=== PATIENT | female | born 1960 | race Caucasian/White ===

== ENCOUNTER 2018-10-31 11:09 | Inpatient (IN) | payer MEDICARE, OTHER, SELFPAY ==
[~2018-10-31] VITALS: Ht 157.5 cm; Wt 96.6 kg
[~2018-10-31 11:09] MED LIST: LEVO75 PO; LISI-662 PO; VENL-67 PO
[2018-10-31] MEDS ORDERED: HYDR50CA10 PO (11:35)
[2018-10-31] MEDS ORDERED: QUET200T PO (11:35)
[2018-10-31] MEDS ORDERED: LOVA20 PO (11:35)
[2018-10-31] MEDS ORDERED: SERT100T12 PO (11:35)
[2018-10-31] MEDS ORDERED: BUSP5TAB20 PO (11:35)
[2018-10-31] MEDS ORDERED: CLON2 PO (11:35)
[2018-10-31 12:21] LABS: BASOPHILS % (AUTO) 0.7 % (0.0-2.0); EOSINOPHILS % (AUTO) 0.6 % (1.0-6.0); HEMOGLOBIN 14.1 g/dL (12.0-16.0); LYMPHOCYTES # (AUTO) 1.7 K/uL (1.0-4.8); LYMPHOCYTES % (AUTO) 24.1 % (22.0-44.0); MEAN CORPUSCULAR HEMOGLOBIN 30.9 pg (26.0-34.0); MEAN CORPUSCULAR HGB CONC 34.5 G/dL (31.0-37.0); MEAN CORPUSCULAR VOLUME 90 fL (80-100); MONOCYTES # (AUTO) 0.5 K/uL (0.1-1.0); MONOCYTES % (AUTO) 7.3 % (2.0-9.0); NEUTROPHILS # (AUTO) 4.8 K/uL (1.8-7.7); NEUTROPHILS % (AUTO) 67.3 % (40.0-70.0); PLATELET COUNT (AUTO) 227 K/uL (150-450); RED BLOOD CELL COUNT(AUTO) 4.58 MIL/uL (4.00-5.20); RED CELL DISTRIBUTION WIDTH 13.1 % (11.5-14.5)
[2018-10-31 12:46] LABS: ANION GAP 11 mmol/L (8-16); CALCIUM, TOTAL 9.3 mg/dL (8.8-10.5); CARBON DIOXIDE 26 mmol/L (22-29); CHLORIDE 104 mmol/L (98-107); CREATININE 0.85 mg/dL (0.60-1.30); GLOMERULAR FILTR. RATE CALC > 60 mL/min (>60); GLUCOSE,RANDOM 98 mg/dL (70-110); POTASSIUM 3.6 mmol/L (3.5-5.1); SODIUM SERUM 141 mmol/L (136-145); UREA NITROGEN, BLOOD 7 mg/dL (7-18)
[2018-10-31 12:50] LABS: ALANINE AMINOTRANSFERASE 22 U/L (12-78); ALBUMIN 3.5 g/dL (3.4-5.0); ALKALINE PHOSPHATASE 78 U/L (46-116); ASPARTATE AMINOTRANSFERASE 13 U/L (15-37); BILIRUBIN,TOTAL 0.3 mg/dL (0.1-1.0); TOTAL PROTEIN, SERUM 7.6 g/dL (6.4-8.2)
[2018-10-31] MEDS ORDERED: HALOPERIDOL 5 MG TABLET PO PRN (13:00)
[2018-10-31] MEDS ORDERED: ZOLPIDEM TARTRATE 10 MG TABLET PO PRN (13:00)
[2018-10-31 14:01] LABS: AMPHET/METH SCREEN,URINE NEGATIVE (NEGATIVE); BARBITURATE SCREEN, URINE NEGATIVE (NEGATIVE); BENZODIAZEPINES SCREEN,URINE NEGATIVE (NEGATIVE); CANNABINOID SCREEN,URINE NEGATIVE (NEGATIVE); COCAINE SCREEN,URINE NEGATIVE (NEGATIVE); METHADONE SCREEN, URINE NEGATIVE (NEGATIVE); OPIATE SCREEN,URINE NEGATIVE (NEGATIVE); PHENCYCLIDINE SCREEN,URINE NEGATIVE (NEGATIVE)
[2018-10-31 14:07] LABS: APPEARANCE,URINE CLEAR (CLEAR); BILIRUBIN,URINE NEGATIVE (NEGATIVE); GLUCOSE, URINE (UA) NEGATIVE (NEGATIVE); KETONES,URINE NEGATIVE (NEGATIVE); LEUKOCYTE ESTERASE ,URINE NEGATIVE (NEGATIVE); NITRATE,URINE NEGATIVE (NEGATIVE); OCCULT BLOOD,URINE NEGATIVE (NEGATIVE); PROTEIN,URINE NEGATIVE (NEGATIVE); UROBILINOGEN,URINE 0.2 mg/dL (<=1.0)
[2018-10-31] MEDS ORDERED: PNEUMOCOCCAL VACCINE POLYVALENT 0.5 ML VIAL [PPSV23] IM ONE (17:00)
[2018-10-31 17:13] VITALS: BP 107/69
[2018-10-31] MEDS ORDERED: MAGNESIUM HYDROXIDE SUSPENSION 30 ML UDCUP PO PRN (20:15)
[2018-10-31] MEDS ORDERED: ONDANSETRON HCL 4 MG TABLET PO PRN (20:15)
[2018-10-31] MEDS ORDERED: IBUPROFEN 400 MG TABLET PO PRN (20:15)
[2018-10-31] MEDS ORDERED: MAG HYDROX/AL HYDROX/SIMETH ES 30 ML SUSPENSION UDCUP PO PRN (20:15)
[2018-10-31] MEDS ORDERED: ACETAMINOPHEN 325 MG TABLET PO PRN (20:15)
[2018-10-31] MEDS ORDERED: LOPERAMIDE HCL 2 MG CAPSULE PO PRN (20:15)
[2018-10-31] MEDS ORDERED: GuaiFENesin/D-METHORPHAN [SUGAR-FREE] 200-20MG/10 ML SYRUP UDCUP PO PRN (20:15)
[2018-10-31] MEDS ORDERED: DOCUSATE SODIUM 100 MG CAPSULE PO PRN (20:15)
[2018-10-31] MEDS ORDERED: NICOTINE 14 MG/24 HOUR PATCH TD PRN (20:15)
[2018-10-31] MEDS ORDERED: CloNIDine HCL 0.1 MG TABLET PO PRN (20:15)
[2018-10-31] MEDS ORDERED: PETROLATUM,WHITE 71 GM JELLY TP PRN (20:15)
[2018-10-31] MEDS ORDERED: ALBUTEROL SULFATE HFA 90 MCG/PUFF 8 GM INHALER IH PRN (20:15)
[2018-10-31] MEDS: LOVASTATIN 20 MG TABLET PO SCH (21:27)
[2018-11-01 04:30] VITALS: BP 117/58
[2018-11-01] MEDS: LORazepam 2 MG TABLET PO PRN (04:50)
[2018-11-01] MEDS: LEVOTHYROXINE SODIUM 75 MCG TABLET PO SCH (06:10)
[2018-11-01] MEDS ORDERED: LEVOTHYROXINE SODIUM 25 MCG TABLET PO SCH (06:30)
[2018-11-01 08:00] VITALS: BP 113/71
[2018-11-01 08:11] LABS: BASOPHILS % (AUTO) 0.5 % (0.0-2.0); EOSINOPHILS % (AUTO) 1.7 % (1.0-6.0); HEMATOCRIT 40.6 % (36-46); LYMPHOCYTES # (AUTO) 1.8 K/uL (1.0-4.8); LYMPHOCYTES % (AUTO) 25.2 % (22.0-44.0); MEAN CORPUSCULAR HEMOGLOBIN 30.7 pg (26.0-34.0); MEAN CORPUSCULAR HGB CONC 34.5 G/dL (31.0-37.0); MEAN CORPUSCULAR VOLUME 89 fL (80-100); MONOCYTES # (AUTO) 0.5 K/uL (0.1-1.0); MONOCYTES % (AUTO) 6.9 % (2.0-9.0); NEUTROPHILS # (AUTO) 4.6 K/uL (1.8-7.7); NEUTROPHILS % (AUTO) 65.7 % (40.0-70.0); PLATELET COUNT (AUTO) 217 K/uL (150-450); RED BLOOD CELL COUNT(AUTO) 4.56 MIL/uL (4.00-5.20)
[2018-11-01 08:27] LABS: HEMOGLOBIN A1C 5.7 % (4.5-6.2)
[2018-11-01] MEDS: LISINOPRIL 20 MG TABLET PO SCH (08:34)
[2018-11-01 09:23] LABS: ALBUMIN 3.5 g/dL (3.4-5.0); BILIRUBIN,TOTAL 0.3 mg/dL (0.1-1.0); CALCIUM, TOTAL 8.4 mg/dL (8.8-10.5); CHOL/HDL RATIO 2.5 (3.9-5.7); CREATININE 0.99 mg/dL (0.60-1.30); FREE T4 (FREE THYROXINE) 0.98 ng/dL (0.76-1.46); THYROID STIMULATING HORMONE 2.03 uIU/mL (0.36-3.74); TOTAL PROTEIN, SERUM 7.2 g/dL (6.4-8.2)
[2018-11-01] MEDS: SERTRALINE HCL 100 MG TABLET PO SCH (10:16)
[2018-11-01] MEDS: BusPIRone HCL 5 MG TABLET PO SCH ×2 (12:41→16:34)
[2018-11-01 16:06] VITALS: BP 112/70
[2018-11-01] MEDS: LOVASTATIN 20 MG TABLET PO SCH (20:40)
[2018-11-01] MEDS: QUEtiapine FUMARATE 200 MG TABLET PO SCH (20:40)
[2018-11-02 05:56] VITALS: BP 110/70
[2018-11-02] MEDS: LEVOTHYROXINE SODIUM 75 MCG TABLET PO SCH (06:23)
[2018-11-02] MEDS: LORazepam 2 MG TABLET PO PRN (06:23)
[2018-11-02 08:10] LABS: AMPHET/METH SCREEN,URINE NEGATIVE (NEGATIVE); BARBITURATE SCREEN, URINE NEGATIVE (NEGATIVE); BENZODIAZEPINES SCREEN,URINE NEGATIVE (NEGATIVE); CANNABINOID SCREEN,URINE NEGATIVE (NEGATIVE); COCAINE SCREEN,URINE NEGATIVE (NEGATIVE); METHADONE SCREEN, URINE NEGATIVE (NEGATIVE); OPIATE SCREEN,URINE NEGATIVE (NEGATIVE)
[2018-11-02 08:14] LABS: PHENCYCLIDINE SCREEN,URINE NEGATIVE (NEGATIVE)
[2018-11-02] MEDS: BusPIRone HCL 5 MG TABLET PO SCH ×3 (08:24→16:30)
[2018-11-02] MEDS: SERTRALINE HCL 100 MG TABLET PO SCH (08:29)
[2018-11-02] MEDS: LISINOPRIL 20 MG TABLET PO SCH (08:29)
[2018-11-02 08:40] LABS: APPEARANCE,URINE CLEAR (CLEAR); BILIRUBIN,URINE NEGATIVE (NEGATIVE); GLUCOSE, URINE (UA) NEGATIVE (NEGATIVE); KETONES,URINE NEGATIVE (NEGATIVE); LEUKOCYTE ESTERASE ,URINE NEGATIVE (NEGATIVE); NITRATE,URINE NEGATIVE (NEGATIVE); OCCULT BLOOD,URINE NEGATIVE (NEGATIVE); PH,URINE 7.5 (5.0-8.0); PROTEIN,URINE NEGATIVE (NEGATIVE); UROBILINOGEN,URINE 0.2 mg/dL (<=1.0)
[2018-11-02 08:53] VITALS: BP 120/74
[2018-11-02 16:12] VITALS: BP 99/71
[2018-11-02 20:35] VITALS: BP 104/69
[2018-11-02] MEDS: LOVASTATIN 20 MG TABLET PO SCH (20:36)
[2018-11-02] MEDS: QUEtiapine FUMARATE 200 MG TABLET PO SCH (20:36)
[2018-11-03] MEDS: LEVOTHYROXINE SODIUM 75 MCG TABLET PO SCH (06:41)
[2018-11-03 06:45] VITALS: BP 108/72
[2018-11-03] MEDS: BusPIRone HCL 5 MG TABLET PO SCH ×3 (08:01→16:45)
[2018-11-03] MEDS: SERTRALINE HCL 100 MG TABLET PO SCH (08:01)
[2018-11-03] MEDS: LISINOPRIL 20 MG TABLET PO SCH (08:01)
[2018-11-03 08:22] VITALS: BP 110/66
[2018-11-03] MEDS: LORazepam 2 MG TABLET PO PRN (13:18)
[2018-11-03 16:09] VITALS: BP 105/76
[2018-11-03] MEDS: LOVASTATIN 20 MG TABLET PO SCH (20:37)
[2018-11-03] MEDS: QUEtiapine FUMARATE 200 MG TABLET PO SCH (20:38)
[2018-11-04 06:34] VITALS: BP 110/62
[2018-11-04] MEDS: LEVOTHYROXINE SODIUM 75 MCG TABLET PO SCH (06:42)
[2018-11-04] MEDS: LORazepam 2 MG TABLET PO PRN (07:19)
[2018-11-04 08:15] VITALS: BP 108/60
[2018-11-04] MEDS: SERTRALINE HCL 100 MG TABLET PO SCH (08:43)
[2018-11-04] MEDS: BusPIRone HCL 5 MG TABLET PO SCH ×3 (08:43→17:21)
[2018-11-04] MEDS: LISINOPRIL 20 MG TABLET PO SCH (08:43)
[2018-11-04 16:32] VITALS: BP_SYST 123; BP_SYST 89; BP_DIAS 53; BP_DIAS 98
[2018-11-04] MEDS: QUEtiapine FUMARATE 200 MG TABLET PO SCH (20:28)
[2018-11-04] MEDS: LOVASTATIN 20 MG TABLET PO SCH (20:29)
[2018-11-05 06:17] VITALS: BP 120/82
[2018-11-05] MEDS: LEVOTHYROXINE SODIUM 75 MCG TABLET PO SCH (06:31)
[2018-11-05 08:07] VITALS: BP 102/71
[2018-11-05] MEDS: LISINOPRIL 20 MG TABLET PO SCH (09:00)
[2018-11-05] MEDS: BusPIRone HCL 5 MG TABLET PO SCH ×3 (09:00→16:09)
[2018-11-05] MEDS: SERTRALINE HCL 100 MG TABLET PO SCH (09:00)
[2018-11-05] MEDS ORDERED: LORazepam 1 MG TABLET PO ONE (09:45)
[2018-11-05] MEDS ORDERED: QUEtiapine FUMARATE 25 MG TABLET PO ONE (09:45)
[2018-11-05 16:24] VITALS: BP 118/99
[2018-11-05] MEDS: LOVASTATIN 20 MG TABLET PO SCH (20:27)
[2018-11-05] MEDS: QUEtiapine FUMARATE 200 MG TABLET PO SCH (20:27)
[2018-11-06 04:58] VITALS: BP 104/63
[2018-11-06] MEDS: LEVOTHYROXINE SODIUM 75 MCG TABLET PO SCH (06:31)
[2018-11-06 08:21] VITALS: BP 119/64
[2018-11-06] MEDS: BusPIRone HCL 5 MG TABLET PO SCH (08:41)
[2018-11-06] MEDS: SERTRALINE HCL 100 MG TABLET PO SCH (08:41)
[2018-11-06] MEDS: LISINOPRIL 20 MG TABLET PO SCH (08:41)
[2018-11-06] MEDS: BuPROPion HCL XL 150 MG ER TABLET PO SCH (10:36)
[2018-11-06] MEDS: BusPIRone HCL 15 MG TABLET PO SCH ×2 (12:22→16:20)
[2018-11-06 16:09] VITALS: BP 108/64
[2018-11-06] MEDS: LOVASTATIN 20 MG TABLET PO SCH (19:46)
[2018-11-06] MEDS: QUEtiapine FUMARATE 200 MG TABLET PO SCH (19:46)
[2018-11-07] MEDS: LEVOTHYROXINE SODIUM 75 MCG TABLET PO SCH (06:32)
[2018-11-07 06:36] VITALS: BP 106/62
[2018-11-07] MEDS: BuPROPion HCL XL 150 MG ER TABLET PO SCH (08:17)
[2018-11-07] MEDS: BusPIRone HCL 15 MG TABLET PO SCH ×3 (08:17→16:41)
[2018-11-07] MEDS: LISINOPRIL 20 MG TABLET PO SCH (08:17)
[2018-11-07] MEDS: SERTRALINE HCL 100 MG TABLET PO SCH (08:17)
[2018-11-07] MEDS: LORazepam 2 MG TABLET PO PRN (08:56)
[2018-11-07 09:03] VITALS: BP 120/90
[2018-11-07] MEDS: QUEtiapine FUMARATE 25 MG TABLET PO SCH ×2 (09:40→16:41)
[2018-11-07 16:41] VITALS: BP 100/62
[2018-11-07] MEDS: LOVASTATIN 20 MG TABLET PO SCH (20:37)
[2018-11-07] MEDS: QUEtiapine FUMARATE 200 MG TABLET PO SCH (20:37)
[2018-11-08 05:43] VITALS: BP 110/70
[2018-11-08] MEDS: LEVOTHYROXINE SODIUM 75 MCG TABLET PO SCH (07:00)
[2018-11-08] MEDS: LORazepam 2 MG TABLET PO PRN (07:00)
[2018-11-08 08:17] VITALS: BP 112/70
[2018-11-08] MEDS: BusPIRone HCL 15 MG TABLET PO SCH ×3 (08:58→16:24)
[2018-11-08] MEDS: SERTRALINE HCL 100 MG TABLET PO SCH (08:58)
[2018-11-08] MEDS: LISINOPRIL 20 MG TABLET PO SCH (09:00)
[2018-11-08] MEDS: QUEtiapine FUMARATE 25 MG TABLET PO SCH ×2 (09:00→16:24)
[2018-11-08] MEDS: BuPROPion HCL XL 150 MG ER TABLET PO SCH (09:00)
[2018-11-08 16:00] VITALS: BP 104/68
[2018-11-08] MEDS: LOVASTATIN 20 MG TABLET PO SCH (21:17)
[2018-11-08] MEDS: QUEtiapine FUMARATE 200 MG TABLET PO SCH (21:17)
[2018-11-09] VITALS: BP 97/63
[2018-11-09] MEDS: LEVOTHYROXINE SODIUM 75 MCG TABLET PO SCH (06:40)
[2018-11-09 08:07] VITALS: BP 111/61
[2018-11-09] MEDS: QUEtiapine FUMARATE 25 MG TABLET PO SCH ×2 (08:25→16:55)
[2018-11-09] MEDS: SERTRALINE HCL 100 MG TABLET PO SCH (08:25)
[2018-11-09] MEDS: BusPIRone HCL 15 MG TABLET PO SCH ×3 (08:25→16:55)
[2018-11-09] MEDS: LISINOPRIL 20 MG TABLET PO SCH (08:25)
[2018-11-09] MEDS: BuPROPion HCL XL 150 MG ER TABLET PO SCH (08:26)
[2018-11-09] MEDS: LORazepam 2 MG TABLET PO PRN (14:28)
[2018-11-09 16:21] VITALS: BP 109/60
[2018-11-09] MEDS: LOVASTATIN 20 MG TABLET PO SCH (20:13)
[2018-11-09] MEDS: QUEtiapine FUMARATE 200 MG TABLET PO SCH (20:13)
[2018-11-10 04:37] VITALS: BP 110/70
[2018-11-10] MEDS: LEVOTHYROXINE SODIUM 75 MCG TABLET PO SCH (06:30)
[2018-11-10] MEDS: LORazepam 2 MG TABLET PO PRN (06:30)
[2018-11-10 08:15] VITALS: BP 105/66
[2018-11-10 08:25] VITALS: BP 110/79
[2018-11-10] MEDS: BusPIRone HCL 15 MG TABLET PO SCH ×3 (08:25→16:16)
[2018-11-10] MEDS: BuPROPion HCL XL 150 MG ER TABLET PO SCH (08:25)
[2018-11-10] MEDS: SERTRALINE HCL 100 MG TABLET PO SCH (08:25)
[2018-11-10] MEDS: QUEtiapine FUMARATE 25 MG TABLET PO SCH ×2 (08:25→16:16)
[2018-11-10] MEDS: LISINOPRIL 20 MG TABLET PO SCH (08:25)
[2018-11-10 17:35] VITALS: BP 114/62
[2018-11-10] MEDS: QUEtiapine FUMARATE 200 MG TABLET PO SCH (20:23)
[2018-11-10] MEDS: LOVASTATIN 20 MG TABLET PO SCH (20:23)
[2018-11-11 05:59] VITALS: BP 114/71
[2018-11-11] MEDS: LEVOTHYROXINE SODIUM 75 MCG TABLET PO SCH (06:31)
[2018-11-11 08:23] VITALS: BP 112/87
[2018-11-11] MEDS: SERTRALINE HCL 100 MG TABLET PO SCH (08:26)
[2018-11-11] MEDS: LISINOPRIL 20 MG TABLET PO SCH (08:26)
[2018-11-11] MEDS: BusPIRone HCL 15 MG TABLET PO SCH ×3 (08:26→16:35)
[2018-11-11] MEDS: QUEtiapine FUMARATE 25 MG TABLET PO SCH ×2 (08:26→16:35)
[2018-11-11] MEDS: BuPROPion HCL XL 150 MG ER TABLET PO SCH (08:27)
[2018-11-11] MEDS ORDERED: LORazepam 1 MG TABLET PO ONE (13:00)
[2018-11-11] MEDS ORDERED: ChlorproMAZINE HCL 25 MG TABLET PO ONE (13:00)
[2018-11-11] MEDS ORDERED: ChlorproMAZINE HCL 50 MG TABLET PO ONE (13:00)
[2018-11-11 16:22] VITALS: BP 106/71
[2018-11-11] MEDS: QUEtiapine FUMARATE 200 MG TABLET PO SCH (20:18)
[2018-11-11] MEDS: LOVASTATIN 20 MG TABLET PO SCH (20:18)
[2018-11-12 05:46] VITALS: BP 103/60
[2018-11-12] MEDS: LEVOTHYROXINE SODIUM 75 MCG TABLET PO SCH (06:52)
[2018-11-12 08:00] VITALS: BP 116/69
[2018-11-12] MEDS: QUEtiapine FUMARATE 25 MG TABLET PO SCH ×2 (08:39→16:43)
[2018-11-12] MEDS: SERTRALINE HCL 100 MG TABLET PO SCH (08:39)
[2018-11-12] MEDS: BuPROPion HCL XL 150 MG ER TABLET PO SCH (08:39)
[2018-11-12] MEDS: BusPIRone HCL 15 MG TABLET PO SCH ×3 (08:39→16:43)
[2018-11-12] MEDS: LISINOPRIL 20 MG TABLET PO SCH (08:39)
[2018-11-12] MEDS ORDERED: BUPR-93 PO (10:46)
[2018-11-12] MEDS ORDERED: SERT100T12 PO (10:46)
[2018-11-12] MEDS ORDERED: BUSP15 PO (10:46)
[2018-11-12 16:26] VITALS: BP 110/60
[2018-11-12] MEDS: LOVASTATIN 20 MG TABLET PO SCH (20:25)
[2018-11-12] MEDS: QUEtiapine FUMARATE 200 MG TABLET PO SCH (20:26)
[2018-11-13 05:35] VITALS: BP 120/67
[2018-11-13] MEDS: LEVOTHYROXINE SODIUM 75 MCG TABLET PO SCH (06:32)
[2018-11-13 08:12] VITALS: BP 111/70
[2018-11-13] MEDS: BuPROPion HCL XL 150 MG ER TABLET PO SCH (08:23)
[2018-11-13] MEDS: QUEtiapine FUMARATE 25 MG TABLET PO SCH ×2 (08:24→16:28)
[2018-11-13] MEDS: SERTRALINE HCL 100 MG TABLET PO SCH (08:24)
[2018-11-13] MEDS: BusPIRone HCL 15 MG TABLET PO SCH ×3 (08:24→16:27)
[2018-11-13] MEDS: LISINOPRIL 20 MG TABLET PO SCH (08:24)
[2018-11-13] MEDS: LORazepam 1 MG TABLET PO PRN ×2 (10:09→16:28)
[2018-11-13 17:02] VITALS: BP 100/60
[2018-11-13] MEDS: LOVASTATIN 20 MG TABLET PO SCH (20:19)
[2018-11-13] MEDS: QUEtiapine FUMARATE 200 MG TABLET PO SCH (20:19)
[2018-11-14 00:56] VITALS: BP 100/61
[2018-11-14] MEDS: LEVOTHYROXINE SODIUM 75 MCG TABLET PO SCH (07:02)
[2018-11-14 08:05] VITALS: BP 114/75
[2018-11-14] MEDS: QUEtiapine FUMARATE 25 MG TABLET PO SCH ×2 (08:14→16:35)
[2018-11-14] MEDS: BuPROPion HCL XL 150 MG ER TABLET PO SCH (08:14)
[2018-11-14] MEDS: SERTRALINE HCL 100 MG TABLET PO SCH (08:14)
[2018-11-14] MEDS: LISINOPRIL 20 MG TABLET PO SCH (08:14)
[2018-11-14] MEDS: BusPIRone HCL 15 MG TABLET PO SCH (08:14)
[2018-11-14] MEDS: LORazepam 1 MG TABLET PO PRN ×2 (09:25→19:16)
[2018-11-14] MEDS: BusPIRone HCL 10 MG TABLET PO SCH ×2 (12:37→16:35)
[2018-11-14 16:17] VITALS: BP 118/79
[2018-11-14] MEDS: LOVASTATIN 20 MG TABLET PO SCH (20:29)
[2018-11-14] MEDS: QUEtiapine FUMARATE 200 MG TABLET PO SCH (20:29)
[2018-11-15 06:38] VITALS: BP 115/78
[2018-11-15] MEDS: LEVOTHYROXINE SODIUM 75 MCG TABLET PO SCH (06:56)
[2018-11-15] MEDS: LORazepam 1 MG TABLET PO PRN (07:29)
[2018-11-15 08:07] VITALS: BP 110/62
[2018-11-15] MEDS: SERTRALINE HCL 100 MG TABLET PO SCH (08:21)
[2018-11-15] MEDS: BusPIRone HCL 10 MG TABLET PO SCH ×3 (08:22→16:27)
[2018-11-15] MEDS: LISINOPRIL 20 MG TABLET PO SCH (08:22)
[2018-11-15] MEDS: QUEtiapine FUMARATE 25 MG TABLET PO SCH ×2 (08:22→16:27)
[2018-11-15] MEDS: BuPROPion HCL XL 150 MG ER TABLET PO SCH (08:22)
[2018-11-15 16:04] VITALS: BP 106/67
[2018-11-15] MEDS ORDERED: QUET25TA PO (16:52)
[2018-11-15] MEDS ORDERED: BUSP10TA23 PO (16:52)
[2018-11-15] MEDS ORDERED: BUPR-93 PO (16:52)
== END 2018-11-15 18:20 | disposition home or self-care (01) | DRG 885 ==
LOC: EMS 11:11 → B2X 15:06
PROVIDERS: ADMIT Psychiatry & Neurology Child & Adolescent Psychiatry; ATTEND Psychiatry & Neurology Child & Adolescent Psychiatry
DX: F25.1 Schizoaffective disorder, depressive type (principal); R45.851 Suicidal ideations; E03.9 Hypothyroidism, unspecified; E11.9 Type 2 diabetes mellitus without complications; E78.5 Hyperlipidemia, unspecified; F41.9 Anxiety disorder, unspecified; I10 Essential (primary) hypertension; Z87.891 Personal history of nicotine dependence; Z91.5 Personal history of self-harm; Z79.899 Other long term (current) drug therapy; Z79.890 Hormone replacement therapy
CPT/HCPCS: 80307; 83036; 84436; 84439; 84443; 90732; G0480

== ENCOUNTER 2018-11-18 05:19 | Inpatient (IN) | payer MEDICARE ==
[~2018-11-18] VITALS: Ht 157.5 cm; Wt 94.6 kg
[~2018-11-18 05:19] MED LIST changes: +BUPR-93 PO; +BUSP10TA23 PO; +LOVA20 PO; +QUET200T PO; +QUET25TA PO; +SERT100T12 PO; -VENL-67 PO
[2018-11-18] MEDS ORDERED: [UNRECOGNIZED DRUG - CODE] PO (05:43)
[2018-11-18] MEDS ORDERED: XALA2.5OS OU (05:44)
[2018-11-18 05:52] LABS: BASOPHILS % (AUTO) 0.3 % (0.0-2.0); EOSINOPHILS % (AUTO) 1.6 % (1.0-6.0); HEMATOCRIT 43.1 % (36-46); HEMOGLOBIN 14.6 g/dL (12.0-16.0); LYMPHOCYTES # (AUTO) 1.6 K/uL (1.0-4.8); LYMPHOCYTES % (AUTO) 19.9 % (22.0-44.0); MEAN CORPUSCULAR HEMOGLOBIN 30.5 pg (26.0-34.0); MEAN CORPUSCULAR HGB CONC 33.9 G/dL (31.0-37.0); MEAN CORPUSCULAR VOLUME 90 fL (80-100); MONOCYTES # (AUTO) 0.6 K/uL (0.1-1.0); MONOCYTES % (AUTO) 7.6 % (2.0-9.0); NEUTROPHILS # (AUTO) 5.5 K/uL (1.8-7.7); NEUTROPHILS % (AUTO) 70.6 % (40.0-70.0); PLATELET COUNT (AUTO) 247 K/uL (150-450); RED BLOOD CELL COUNT(AUTO) 4.79 MIL/uL (4.00-5.20); RED CELL DISTRIBUTION WIDTH 12.9 % (11.5-14.5)
[2018-11-18 06:05] LABS: ANION GAP 9 mmol/L (8-16); CALCIUM, TOTAL 9.1 mg/dL (8.8-10.5); CARBON DIOXIDE 27 mmol/L (22-29); CHLORIDE 100 mmol/L (98-107); CREATININE 0.91 mg/dL (0.60-1.30); GLOMERULAR FILTR. RATE CALC > 60 mL/min (>60); GLUCOSE,RANDOM 121 mg/dL (70-110); POTASSIUM 3.7 mmol/L (3.5-5.1); SODIUM SERUM 136 mmol/L (136-145); UREA NITROGEN, BLOOD 10 mg/dL (7-18)
[2018-11-18 06:16] LABS: ALANINE AMINOTRANSFERASE 28 U/L (12-78); ALBUMIN 3.9 g/dL (3.4-5.0); ALKALINE PHOSPHATASE 81 U/L (46-116); ASPARTATE AMINOTRANSFERASE 19 U/L (15-37); BILIRUBIN,TOTAL 0.5 mg/dL (0.1-1.0); HCG,QUANTITATIVE 5 mIU/mL (0-6)
[2018-11-18] MEDS ORDERED: LORazepam 2 MG/ML VIAL IM ONE (06:45)
[2018-11-18 07:03] LABS: AMPHET/METH SCREEN,URINE NEGATIVE (NEGATIVE); BARBITURATE SCREEN, URINE NEGATIVE (NEGATIVE); BENZODIAZEPINES SCREEN,URINE NEGATIVE (NEGATIVE); CANNABINOID SCREEN,URINE NEGATIVE (NEGATIVE); COCAINE SCREEN,URINE NEGATIVE (NEGATIVE); METHADONE SCREEN, URINE NEGATIVE (NEGATIVE); OPIATE SCREEN,URINE NEGATIVE (NEGATIVE)
[2018-11-18 07:08] LABS: PHENCYCLIDINE SCREEN,URINE NEGATIVE (NEGATIVE)
[2018-11-18] MEDS ORDERED: HALOPERIDOL 5 MG TABLET PO PRN (07:15)
[2018-11-18] MEDS ORDERED: ZOLPIDEM TARTRATE 10 MG TABLET PO PRN (07:15)
[2018-11-18 10:15] VITALS: BP 123/75
[2018-11-18] MEDS ORDERED: IBUPROFEN 400 MG TABLET PO PRN (10:30)
[2018-11-18] MEDS ORDERED: DOCUSATE SODIUM 100 MG CAPSULE PO PRN (10:30)
[2018-11-18] MEDS ORDERED: ACETAMINOPHEN 325 MG TABLET PO PRN (10:30)
[2018-11-18] MEDS ORDERED: PETROLATUM,WHITE 71 GM JELLY TP PRN (10:30)
[2018-11-18] MEDS ORDERED: MAGNESIUM HYDROXIDE SUSPENSION 30 ML UDCUP PO PRN (10:30)
[2018-11-18] MEDS ORDERED: CloNIDine HCL 0.1 MG TABLET PO PRN (10:30)
[2018-11-18] MEDS ORDERED: MAG HYDROX/AL HYDROX/SIMETH ES 30 ML SUSPENSION UDCUP PO PRN (10:30)
[2018-11-18] MEDS: LORazepam 2 MG TABLET PO PRN (11:09)
[2018-11-18] MEDS: BusPIRone HCL 10 MG TABLET PO SCH ×2 (12:59→17:03)
[2018-11-18 16:06] VITALS: BP 121/83
[2018-11-18] MEDS: QUEtiapine FUMARATE 300 MG TABLET PO SCH (20:31)
[2018-11-19 06:20] VITALS: BP 110/68
[2018-11-19] MEDS: LISINOPRIL 20 MG TABLET PO SCH (08:06)
[2018-11-19] MEDS: BusPIRone HCL 10 MG TABLET PO SCH ×3 (08:06→16:34)
[2018-11-19] MEDS: QUEtiapine FUMARATE 200 MG TABLET PO SCH (08:06)
[2018-11-19] MEDS: BuPROPion HCL XL 150 MG ER TABLET PO SCH (08:06)
[2018-11-19] MEDS: SERTRALINE HCL 100 MG TABLET PO SCH (08:06)
[2018-11-19 08:29] VITALS: BP 140/94
[2018-11-19 09:30] VITALS: BP 124/82
[2018-11-19] MEDS: LORazepam 2 MG TABLET PO PRN (09:35)
[2018-11-19 16:08] VITALS: BP 110/63
[2018-11-19] MEDS: QUEtiapine FUMARATE 300 MG TABLET PO SCH (21:32)
[2018-11-19] MEDS: LOVASTATIN 20 MG TABLET PO SCH (21:32)
[2018-11-19] MEDS: LATANOPROST 0.005% 2.5 ML OPHTHALMIC SOLUTION OU SCH (21:32)
[2018-11-20 05:01] VITALS: BP 105/64
[2018-11-20] MEDS: LEVOTHYROXINE SODIUM 75 MCG TABLET PO SCH (06:41)
[2018-11-20 07:52] LABS: BASOPHILS % (AUTO) 0.4 % (0.0-2.0); HEMATOCRIT 38.4 % (36-46); HEMOGLOBIN 13.4 g/dL (12.0-16.0); LYMPHOCYTES # (AUTO) 1.7 K/uL (1.0-4.8); LYMPHOCYTES % (AUTO) 27.2 % (22.0-44.0); MEAN CORPUSCULAR VOLUME 89 fL (80-100); MONOCYTES # (AUTO) 0.5 K/uL (0.1-1.0); MONOCYTES % (AUTO) 8.3 % (2.0-9.0); NEUTROPHILS # (AUTO) 3.9 K/uL (1.8-7.7); NEUTROPHILS % (AUTO) 62.1 % (40.0-70.0); PLATELET COUNT (AUTO) 213 K/uL (150-450); RED BLOOD CELL COUNT(AUTO) 4.34 MIL/uL (4.00-5.20)
[2018-11-20 08:08] LABS: HEMOGLOBIN A1C 5.8 % (4.5-6.2)
[2018-11-20 08:16] LABS: ALANINE AMINOTRANSFERASE 23 U/L (12-78); ALBUMIN 3.3 g/dL (3.4-5.0); ALKALINE PHOSPHATASE 81 U/L (46-116); ANION GAP 4 mmol/L (8-16); ASPARTATE AMINOTRANSFERASE 13 U/L (15-37); BILIRUBIN,TOTAL 0.2 mg/dL (0.1-1.0); CALCIUM, TOTAL 8.7 mg/dL (8.8-10.5); CARBON DIOXIDE 29 mmol/L (22-29); CHLORIDE 105 mmol/L (98-107); CHOL/HDL RATIO 2.3 (3.9-5.7); CHOLESTEROL 150 mg/dL (131-200); CREATININE 0.85 mg/dL (0.60-1.30); FREE T4 (FREE THYROXINE) 0.76 ng/dL (0.76-1.46); GLOMERULAR FILTR. RATE CALC > 60 mL/min (>60); GLUCOSE,RANDOM 103 mg/dL (70-110); HCG,QUANTITATIVE 5 mIU/mL (0-6); HDL CHOLESTEROL 66 mg/dL (40-60); LDL CHOL (CALC.) 72 mg/dL (0-130); POTASSIUM 4.3 mmol/L (3.5-5.1); SODIUM SERUM 138 mmol/L (136-145); THYROID STIMULATING HORMONE 5.28 uIU/mL (0.36-3.74); TOTAL PROTEIN, SERUM 6.8 g/dL (6.4-8.2); TRIGLYCERIDES 58 mg/dL (15-150); UREA NITROGEN, BLOOD 10 mg/dL (7-18)
[2018-11-20 08:31] VITALS: BP 117/53
[2018-11-20 08:55] VITALS: BP 118/72
[2018-11-20] MEDS: BuPROPion HCL XL 150 MG ER TABLET PO SCH (08:57)
[2018-11-20] MEDS: LISINOPRIL 20 MG TABLET PO SCH (08:57)
[2018-11-20] MEDS: QUEtiapine FUMARATE 200 MG TABLET PO SCH (08:57)
[2018-11-20] MEDS: BusPIRone HCL 10 MG TABLET PO SCH ×3 (08:57→16:47)
[2018-11-20] MEDS: SERTRALINE HCL 100 MG TABLET PO SCH (08:57)
[2018-11-20] MEDS: LORazepam 2 MG TABLET PO PRN (10:45)
[2018-11-20 16:18] VITALS: BP 101/66
[2018-11-20] MEDS: LOVASTATIN 20 MG TABLET PO SCH (20:06)
[2018-11-20] MEDS: QUEtiapine FUMARATE 300 MG TABLET PO SCH (20:06)
[2018-11-20] MEDS: LATANOPROST 0.005% 2.5 ML OPHTHALMIC SOLUTION OU SCH (20:07)
[2018-11-21 05:13] VITALS: BP 106/70
[2018-11-21] MEDS: LEVOTHYROXINE SODIUM 75 MCG TABLET PO SCH (06:53)
[2018-11-21 08:26] VITALS: BP 107/63
[2018-11-21 08:39] VITALS: BP 112/68
[2018-11-21] MEDS: SERTRALINE HCL 100 MG TABLET PO SCH (08:39)
[2018-11-21] MEDS: QUEtiapine FUMARATE 200 MG TABLET PO SCH (08:39)
[2018-11-21] MEDS: BuPROPion HCL XL 150 MG ER TABLET PO SCH (08:39)
[2018-11-21] MEDS: LISINOPRIL 20 MG TABLET PO SCH (08:39)
[2018-11-21] MEDS: BusPIRone HCL 10 MG TABLET PO SCH ×3 (08:40→16:19)
[2018-11-21] MEDS: LORazepam 2 MG TABLET PO PRN (14:35)
[2018-11-21 16:08] VITALS: BP 108/75
[2018-11-21] MEDS: LOVASTATIN 20 MG TABLET PO SCH (20:34)
[2018-11-21] MEDS: QUEtiapine FUMARATE 300 MG TABLET PO SCH (20:34)
[2018-11-21] MEDS: LATANOPROST 0.005% 2.5 ML OPHTHALMIC SOLUTION OU SCH (20:34)
[2018-11-22 05:10] VITALS: BP 114/71
[2018-11-22] MEDS: LEVOTHYROXINE SODIUM 75 MCG TABLET PO SCH (06:48)
[2018-11-22 08:28] VITALS: BP 114/64
[2018-11-22] MEDS: QUEtiapine FUMARATE 200 MG TABLET PO SCH (08:37)
[2018-11-22] MEDS: SERTRALINE HCL 100 MG TABLET PO SCH (08:37)
[2018-11-22] MEDS: BuPROPion HCL XL 150 MG ER TABLET PO SCH (08:37)
[2018-11-22] MEDS: LISINOPRIL 20 MG TABLET PO SCH (08:37)
[2018-11-22] MEDS: BusPIRone HCL 10 MG TABLET PO SCH ×3 (08:38→16:32)
[2018-11-22] MEDS: LORazepam 2 MG TABLET PO PRN (10:45)
[2018-11-22 16:00] VITALS: BP 110/85
[2018-11-22] MEDS: LOVASTATIN 20 MG TABLET PO SCH (20:06)
[2018-11-22] MEDS: QUEtiapine FUMARATE 300 MG TABLET PO SCH (20:06)
[2018-11-22] MEDS: LATANOPROST 0.005% 2.5 ML OPHTHALMIC SOLUTION OU SCH (20:07)
[2018-11-23 05:50] VITALS: BP 108/63
[2018-11-23] MEDS: LEVOTHYROXINE SODIUM 75 MCG TABLET PO SCH (06:51)
[2018-11-23 08:16] VITALS: BP 108/61
[2018-11-23] MEDS: QUEtiapine FUMARATE 200 MG TABLET PO SCH (08:28)
[2018-11-23] MEDS: BusPIRone HCL 10 MG TABLET PO SCH ×3 (08:28→16:38)
[2018-11-23] MEDS: LISINOPRIL 20 MG TABLET PO SCH (08:28)
[2018-11-23] MEDS: BuPROPion HCL XL 150 MG ER TABLET PO SCH (08:28)
[2018-11-23] MEDS: SERTRALINE HCL 100 MG TABLET PO SCH (08:29)
[2018-11-23] MEDS: LORazepam 2 MG TABLET PO PRN (09:33)
[2018-11-23 16:12] VITALS: BP 118/63
[2018-11-23] MEDS: QUEtiapine FUMARATE 300 MG TABLET PO SCH (20:09)
[2018-11-23] MEDS: LOVASTATIN 20 MG TABLET PO SCH (20:09)
[2018-11-23] MEDS: LATANOPROST 0.005% 2.5 ML OPHTHALMIC SOLUTION OU SCH (20:10)
[2018-11-24 06:38] VITALS: BP 112/60
[2018-11-24] MEDS: LEVOTHYROXINE SODIUM 75 MCG TABLET PO SCH (06:52)
[2018-11-24] MEDS: BuPROPion HCL XL 150 MG ER TABLET PO SCH (08:15)
[2018-11-24] MEDS: QUEtiapine FUMARATE 200 MG TABLET PO SCH (08:15)
[2018-11-24] MEDS: SERTRALINE HCL 100 MG TABLET PO SCH (08:15)
[2018-11-24] MEDS: BusPIRone HCL 10 MG TABLET PO SCH ×3 (08:15→16:33)
[2018-11-24] MEDS: LISINOPRIL 20 MG TABLET PO SCH (08:15)
[2018-11-24 08:23] VITALS: BP 121/77
[2018-11-24] MEDS: LORazepam 2 MG TABLET PO PRN (09:34)
[2018-11-24 16:10] VITALS: BP 106/60
[2018-11-24] MEDS: LATANOPROST 0.005% 2.5 ML OPHTHALMIC SOLUTION OU SCH (20:05)
[2018-11-24] MEDS: LOVASTATIN 20 MG TABLET PO SCH (20:05)
[2018-11-24] MEDS: QUEtiapine FUMARATE 300 MG TABLET PO SCH (20:05)
[2018-11-25 06:28] VITALS: BP 110/68
[2018-11-25] MEDS: LEVOTHYROXINE SODIUM 75 MCG TABLET PO SCH (06:31)
[2018-11-25 08:08] VITALS: BP 112/65
[2018-11-25] MEDS: BusPIRone HCL 10 MG TABLET PO SCH ×3 (08:26→16:35)
[2018-11-25] MEDS: BuPROPion HCL XL 150 MG ER TABLET PO SCH (08:26)
[2018-11-25] MEDS: SERTRALINE HCL 100 MG TABLET PO SCH (08:26)
[2018-11-25] MEDS: QUEtiapine FUMARATE 200 MG TABLET PO SCH (08:26)
[2018-11-25] MEDS: LISINOPRIL 20 MG TABLET PO SCH (08:26)
[2018-11-25] MEDS: LORazepam 2 MG TABLET PO PRN (09:47)
[2018-11-25 16:00] VITALS: BP 117/64
[2018-11-25] MEDS: VENLAFAXINE HCL 75 MG ER CAPSULE PO SCH (16:35)
[2018-11-25] MEDS: LATANOPROST 0.005% 2.5 ML OPHTHALMIC SOLUTION OU SCH (20:35)
[2018-11-25] MEDS: LOVASTATIN 20 MG TABLET PO SCH (20:35)
[2018-11-25] MEDS: QUEtiapine FUMARATE 300 MG TABLET PO SCH (20:35)
[2018-11-26 06:05] VITALS: BP 120/81
[2018-11-26] MEDS: LEVOTHYROXINE SODIUM 75 MCG TABLET PO SCH (06:44)
[2018-11-26] MEDS: SERTRALINE HCL 100 MG TABLET PO SCH (08:21)
[2018-11-26] MEDS: VENLAFAXINE HCL 75 MG ER CAPSULE PO SCH ×2 (08:21→16:35)
[2018-11-26] MEDS: BuPROPion HCL XL 150 MG ER TABLET PO SCH (08:21)
[2018-11-26] MEDS: LISINOPRIL 20 MG TABLET PO SCH (08:21)
[2018-11-26] MEDS: BusPIRone HCL 10 MG TABLET PO SCH ×3 (08:21→16:35)
[2018-11-26] MEDS: QUEtiapine FUMARATE 200 MG TABLET PO SCH (08:21)
[2018-11-26 08:27] VITALS: BP 123/80
[2018-11-26] MEDS: LORazepam 2 MG TABLET PO PRN (09:31)
[2018-11-26 16:10] VITALS: BP 111/62
[2018-11-26] MEDS: LATANOPROST 0.005% 2.5 ML OPHTHALMIC SOLUTION OU SCH (20:32)
[2018-11-26] MEDS: LOVASTATIN 20 MG TABLET PO SCH (20:32)
[2018-11-26] MEDS: QUEtiapine FUMARATE 300 MG TABLET PO SCH (20:32)
[2018-11-27 05:44] VITALS: BP 109/60
[2018-11-27] MEDS: LEVOTHYROXINE SODIUM 75 MCG TABLET PO SCH (06:42)
[2018-11-27] MEDS: VENLAFAXINE HCL 75 MG ER CAPSULE PO SCH ×2 (08:19→16:32)
[2018-11-27] MEDS: QUEtiapine FUMARATE 200 MG TABLET PO SCH (08:19)
[2018-11-27] MEDS: BuPROPion HCL XL 150 MG ER TABLET PO SCH (08:20)
[2018-11-27] MEDS: LISINOPRIL 20 MG TABLET PO SCH (08:20)
[2018-11-27] MEDS: BusPIRone HCL 10 MG TABLET PO SCH ×3 (08:20→16:32)
[2018-11-27] MEDS: SERTRALINE HCL 100 MG TABLET PO SCH (08:20)
[2018-11-27 08:21] VITALS: BP 117/86
[2018-11-27] MEDS: LORazepam 2 MG TABLET PO PRN (10:17)
[2018-11-27 16:08] VITALS: BP 104/67
[2018-11-27] MEDS: QUEtiapine FUMARATE 300 MG TABLET PO SCH (20:29)
[2018-11-27] MEDS: LOVASTATIN 20 MG TABLET PO SCH (20:29)
[2018-11-27] MEDS: LATANOPROST 0.005% 2.5 ML OPHTHALMIC SOLUTION OU SCH (20:30)
[2018-11-28 05:34] VITALS: BP 110/72
[2018-11-28] MEDS: LEVOTHYROXINE SODIUM 75 MCG TABLET PO SCH (06:32)
[2018-11-28] MEDS: SERTRALINE HCL 100 MG TABLET PO SCH (08:16)
[2018-11-28] MEDS: QUEtiapine FUMARATE 200 MG TABLET PO SCH ×2 (08:16→20:45)
[2018-11-28] MEDS: LISINOPRIL 20 MG TABLET PO SCH (08:16)
[2018-11-28] MEDS: VENLAFAXINE HCL 75 MG ER CAPSULE PO SCH ×2 (08:17→16:40)
[2018-11-28] MEDS: BusPIRone HCL 10 MG TABLET PO SCH ×3 (08:17→16:40)
[2018-11-28] MEDS: BuPROPion HCL XL 150 MG ER TABLET PO SCH (08:17)
[2018-11-28 08:25] VITALS: BP 121/86
[2018-11-28] MEDS: LORazepam 2 MG TABLET PO PRN (09:17)
[2018-11-28 16:13] VITALS: BP 110/74
[2018-11-28] MEDS: LOVASTATIN 20 MG TABLET PO SCH (20:45)
[2018-11-28] MEDS: LATANOPROST 0.005% 2.5 ML OPHTHALMIC SOLUTION OU SCH (20:45)
[2018-11-28] MEDS ORDERED: QUEtiapine FUMARATE 300 MG TABLET PO SCH (21:00)
[2018-11-29 00:01] VITALS: BP 108/67
[2018-11-29] MEDS: LORazepam 2 MG TABLET PO PRN (06:26)
[2018-11-29] MEDS: LEVOTHYROXINE SODIUM 75 MCG TABLET PO SCH (06:26)
[2018-11-29] MEDS: LISINOPRIL 20 MG TABLET PO SCH (08:13)
[2018-11-29] MEDS: BuPROPion HCL XL 150 MG ER TABLET PO SCH (08:13)
[2018-11-29] MEDS: BusPIRone HCL 10 MG TABLET PO SCH ×3 (08:13→16:35)
[2018-11-29] MEDS: QUEtiapine FUMARATE 200 MG TABLET PO SCH ×2 (08:13→20:40)
[2018-11-29] MEDS: VENLAFAXINE HCL 75 MG ER CAPSULE PO SCH ×2 (08:13→16:35)
[2018-11-29 08:17] VITALS: BP 110/63
[2018-11-29 16:20] VITALS: BP 105/77
[2018-11-29] MEDS: LATANOPROST 0.005% 2.5 ML OPHTHALMIC SOLUTION OU SCH (20:40)
[2018-11-29] MEDS: LOVASTATIN 20 MG TABLET PO SCH (20:40)
[2018-11-30 00:32] VITALS: BP 67/46
[2018-11-30] MEDS: LORazepam 2 MG TABLET PO PRN ×2 (05:31→10:15)
[2018-11-30] MEDS: LEVOTHYROXINE SODIUM 75 MCG TABLET PO SCH (06:44)
[2018-11-30 08:10] VITALS: BP 112/67
[2018-11-30] MEDS: BuPROPion HCL XL 150 MG ER TABLET PO SCH (08:13)
[2018-11-30] MEDS: QUEtiapine FUMARATE 200 MG TABLET PO SCH ×2 (08:13→20:38)
[2018-11-30] MEDS: VENLAFAXINE HCL 75 MG ER CAPSULE PO SCH ×2 (08:13→16:46)
[2018-11-30] MEDS: BusPIRone HCL 10 MG TABLET PO SCH ×3 (08:13→16:46)
[2018-11-30] MEDS: LISINOPRIL 20 MG TABLET PO SCH (08:13)
[2018-11-30 16:17] VITALS: BP 106/66
[2018-11-30] MEDS: CIPROFLOXACIN HCL 500 MG TABLET PO SCH (16:46)
[2018-11-30] MEDS: LATANOPROST 0.005% 2.5 ML OPHTHALMIC SOLUTION OU SCH (20:39)
[2018-11-30] MEDS: LOVASTATIN 20 MG TABLET PO SCH (20:39)
[2018-11-30] MEDS: CIPROFLOXACIN HCL 0.2%/HYDROCORT 1% 10 ML OTIC SUSPENSION AD SCH (20:58)
[2018-12-01 01:14] VITALS: BP 102/63
[2018-12-01] MEDS: LEVOTHYROXINE SODIUM 75 MCG TABLET PO SCH (06:35)
[2018-12-01] MEDS: BusPIRone HCL 10 MG TABLET PO SCH ×3 (08:10→16:12)
[2018-12-01] MEDS: CIPROFLOXACIN HCL 500 MG TABLET PO SCH ×2 (08:10→16:12)
[2018-12-01] MEDS: QUEtiapine FUMARATE 200 MG TABLET PO SCH ×2 (08:10→20:21)
[2018-12-01] MEDS: BuPROPion HCL XL 150 MG ER TABLET PO SCH (08:10)
[2018-12-01] MEDS: VENLAFAXINE HCL 75 MG ER CAPSULE PO SCH ×2 (08:10→16:12)
[2018-12-01] MEDS: LISINOPRIL 20 MG TABLET PO SCH (08:10)
[2018-12-01] MEDS: CIPROFLOXACIN HCL 0.2%/HYDROCORT 1% 10 ML OTIC SUSPENSION AD SCH ×3 (08:12→16:13)
[2018-12-01 08:15] VITALS: BP 119/73
[2018-12-01] MEDS: LORazepam 2 MG TABLET PO PRN (09:43)
[2018-12-01 16:08] VITALS: BP 112/70
[2018-12-01] MEDS: LOVASTATIN 20 MG TABLET PO SCH (20:21)
[2018-12-01] MEDS: LATANOPROST 0.005% 2.5 ML OPHTHALMIC SOLUTION OU SCH (20:21)
[2018-12-02] MEDS: CIPROFLOXACIN HCL 0.2%/HYDROCORT 1% 10 ML OTIC SUSPENSION AD SCH ×4 (00:03→23:49)
[2018-12-02 05:27] VITALS: BP 108/68
[2018-12-02] MEDS: LORazepam 2 MG TABLET PO PRN ×2 (05:54→10:35)
[2018-12-02] MEDS: LEVOTHYROXINE SODIUM 75 MCG TABLET PO SCH (06:05)
[2018-12-02 08:15] VITALS: BP 110/76
[2018-12-02] MEDS: BusPIRone HCL 10 MG TABLET PO SCH ×3 (08:16→16:36)
[2018-12-02] MEDS: BuPROPion HCL XL 150 MG ER TABLET PO SCH (08:16)
[2018-12-02] MEDS: LISINOPRIL 20 MG TABLET PO SCH (08:16)
[2018-12-02] MEDS: CIPROFLOXACIN HCL 500 MG TABLET PO SCH ×2 (08:16→16:36)
[2018-12-02] MEDS: QUEtiapine FUMARATE 200 MG TABLET PO SCH ×2 (08:16→20:37)
[2018-12-02] MEDS: VENLAFAXINE HCL 75 MG ER CAPSULE PO SCH (08:16)
[2018-12-02 16:24] VITALS: BP 102/65
[2018-12-02] MEDS: VENLAFAXINE HCL 37.5 MG ER CAPSULE PO SCH (16:38)
[2018-12-02] MEDS: LATANOPROST 0.005% 2.5 ML OPHTHALMIC SOLUTION OU SCH (20:36)
[2018-12-02] MEDS: LOVASTATIN 20 MG TABLET PO SCH (20:37)
[2018-12-03 05:05] VITALS: BP 114/72
[2018-12-03] MEDS: LORazepam 2 MG TABLET PO PRN (05:16)
[2018-12-03] MEDS: LEVOTHYROXINE SODIUM 75 MCG TABLET PO SCH (06:32)
[2018-12-03 08:30] VITALS: BP 107/74
[2018-12-03 08:32] VITALS: BP 107/74
[2018-12-03] MEDS: LISINOPRIL 20 MG TABLET PO SCH (09:00)
[2018-12-03] MEDS: QUEtiapine FUMARATE 200 MG TABLET PO SCH ×2 (09:19→20:30)
[2018-12-03] MEDS: BuPROPion HCL XL 150 MG ER TABLET PO SCH (09:19)
[2018-12-03] MEDS: VENLAFAXINE HCL 37.5 MG ER CAPSULE PO SCH ×2 (09:19→17:06)
[2018-12-03] MEDS: CIPROFLOXACIN HCL 500 MG TABLET PO SCH ×2 (09:20→17:40)
[2018-12-03] MEDS: CIPROFLOXACIN HCL 0.2%/HYDROCORT 1% 10 ML OTIC SUSPENSION AD SCH ×2 (09:22→17:05)
[2018-12-03] MEDS: BusPIRone HCL 10 MG TABLET PO SCH ×3 (10:01→17:06)
[2018-12-03 16:28] VITALS: BP 114/62
[2018-12-03] MEDS: LATANOPROST 0.005% 2.5 ML OPHTHALMIC SOLUTION OU SCH (20:30)
[2018-12-03] MEDS: LOVASTATIN 20 MG TABLET PO SCH (20:30)
[2018-12-04] MEDS: LATANOPROST 0.005% 2.5 ML OPHTHALMIC SOLUTION OU SCH ×2 (00:01→20:28)
[2018-12-04] MEDS: CIPROFLOXACIN HCL 0.2%/HYDROCORT 1% 10 ML OTIC SUSPENSION AD SCH ×3 (00:14→17:00)
[2018-12-04 00:20] VITALS: BP 118/70
[2018-12-04 05:23] VITALS: BP 122/76
[2018-12-04] MEDS: LORazepam 2 MG TABLET PO PRN (05:29)
[2018-12-04] MEDS: LEVOTHYROXINE SODIUM 75 MCG TABLET PO SCH (06:28)
[2018-12-04] MEDS: BusPIRone HCL 10 MG TABLET PO SCH ×3 (08:28→16:29)
[2018-12-04] MEDS: QUEtiapine FUMARATE 200 MG TABLET PO SCH ×2 (08:28→20:28)
[2018-12-04] MEDS: CIPROFLOXACIN HCL 500 MG TABLET PO SCH ×2 (08:28→16:29)
[2018-12-04] MEDS: VENLAFAXINE HCL 37.5 MG ER CAPSULE PO SCH ×2 (08:28→16:30)
[2018-12-04] MEDS: BuPROPion HCL XL 150 MG ER TABLET PO SCH (08:28)
[2018-12-04] MEDS: LISINOPRIL 20 MG TABLET PO SCH (08:28)
[2018-12-04 08:43] VITALS: BP 111/75
[2018-12-04 16:16] VITALS: BP 101/67
[2018-12-04] MEDS: LOVASTATIN 20 MG TABLET PO SCH (20:28)
[2018-12-05] MEDS: CIPROFLOXACIN HCL 0.2%/HYDROCORT 1% 10 ML OTIC SUSPENSION AD SCH ×2 (00:04→08:22)
[2018-12-05 05:00] VITALS: BP 117/62
[2018-12-05] MEDS: LORazepam 2 MG TABLET PO PRN (05:41)
[2018-12-05] MEDS: LEVOTHYROXINE SODIUM 75 MCG TABLET PO SCH (06:33)
[2018-12-05] MEDS: LISINOPRIL 20 MG TABLET PO SCH (08:20)
[2018-12-05] MEDS: CIPROFLOXACIN HCL 500 MG TABLET PO SCH (08:20)
[2018-12-05] MEDS: BusPIRone HCL 10 MG TABLET PO SCH ×2 (08:20→12:14)
[2018-12-05] MEDS: VENLAFAXINE HCL 37.5 MG ER CAPSULE PO SCH (08:20)
[2018-12-05] MEDS: BuPROPion HCL XL 150 MG ER TABLET PO SCH (08:20)
[2018-12-05] MEDS: QUEtiapine FUMARATE 200 MG TABLET PO SCH (08:20)
[2018-12-05 08:32] VITALS: BP 121/75
[2018-12-05] MEDS ORDERED: VENL75CA55 PO (09:38)
[2018-12-05] MEDS ORDERED: VENL37.570 PO (09:38)
[2018-12-05] MEDS ORDERED: BUPR-93 PO (09:40)
[2018-12-05] MEDS ORDERED: CIPOTIC AD (09:42)
[2018-12-05] MEDS ORDERED: CIPR250S4 PO (11:35)
== END 2018-12-05 16:48 | disposition home or self-care (01) | DRG 885 ==
LOC: EMS 05:20 → B2X 06:30
PROVIDERS: ATTEND Psychiatry & Neurology Child & Adolescent Psychiatry
DX: F33.2 Major depressive disorder, recurrent severe without psychotic features (principal); R45.851 Suicidal ideations; E03.9 Hypothyroidism, unspecified; E11.9 Type 2 diabetes mellitus without complications; E78.00 Pure hypercholesterolemia, unspecified; E78.5 Hyperlipidemia, unspecified; F41.0 Panic disorder [episodic paroxysmal anxiety]; F60.0 Paranoid personality disorder; I10 Essential (primary) hypertension; K59.00 Constipation, unspecified; Z91.5 Personal history of self-harm
CPT/HCPCS: 83036; 84439; 84443; 87081; 96372; G0480; J2060